=== PATIENT | male | born 1990 | race Caucasian/White ===

== ENCOUNTER 2017-04-01 22:11 | Observation (INO) | payer BC, OTHER ==
[~2017-04-01] VITALS: Ht 200.7 cm; Wt 99.2 kg
[2017-04-01] MEDS ORDERED: MoRPHine SULFATE 4 MG/ML 1 ML CARP\\VIAL IV STA ×3 (22:32→23:47)
[2017-04-01] MEDS ORDERED: ONDANSETRON INJ 2 MG/ML 2 ML VIAL IV STA (22:32)
[2017-04-01] MEDS ORDERED: SODIUM CHLORIDE 0.9% 1000ML 1,000 ML IV STA ×2 (22:32)
[2017-04-01] MEDS ORDERED: OPTIRAY 320 IV PRN (22:45)
[2017-04-01 23:08] LABS: BASO % 0.1 %; BASO ABS # 0.01 K/uL (0-0.2); COMPLETE YES; EOS % 0.6 %; HEMATOCRIT 45.5 % (42-52); IG% 0.1 %; MEAN CELL VOLUME 89.9 fL (80-100); MEAN CORPUSCULAR HEMOGLOBIN 31.8 pg (25-34); MEAN CORPUSCULAR HGB CONC 35.4 g/dl (32-36); MEAN PLATELET VOLUME 9.1 fL (7.4-10.4); NEUT % 67.2 %; PLATELET COUNT 200 K/uL (130-400); RED BLOOD COUNT 5.06 M/uL (4.7-6.1); URINE APPEARANCE CLEAR (CLEAR); URINE BILIRUBIN NEG (NEG); URINE COLOR YELLOW; URINE NITRITE NEG (NEG); URINE PH 6.5 (4.5-7.5); UROBILINOGEN NEG (NEG); WHITE BLOOD COUNT 9.55 K/uL (4.8-10.8); ZZUR CULT IF INDIC CLEAN CATCH NO
[2017-04-01 23:25] LABS: MANUAL MICROSCOPIC REQUIRED? NO; REVIEW REQ? NO
[2017-04-01 23:31] LABS: BUN/CREATININE RATIO 17.3 (10-20); CALCIUM 9.5 mg/dl (8.5-10.1); CREATININE 1.2 mg/dl (0.60-1.40); POTASSIUM 3.8 mmol/L (3.5-5.1)
[2017-04-02] VITALS (10 sets, daily range): BP systolic 105–153; BP diastolic 51–82; PULSE 57–64; TEMP 36.8–37.4; O2SAT 94–99; Ht 200.7 cm; Wt 99.2 kg
[2017-04-02] MEDS ORDERED: PERCOCET HOME PACK PO SCH
[2017-04-02] MEDS ORDERED: ONDANSETRON INJ 2 MG/ML 2 ML VIAL IV STA ×2 (00:34→00:45)
[2017-04-02] MEDS ORDERED: CEFOXITIN 2000MG/60 ML D5W IV STA (00:45)
[2017-04-02] MEDS ORDERED: MoRPHine SULFATE 4 MG/ML 1 ML CARP\\VIAL IV PRN (02:30)
[2017-04-02] MEDS ORDERED: ONDANSETRON INJ 2 MG/ML 2 ML VIAL IV PRN ×2 (02:30→11:15)
[2017-04-02] MEDS ORDERED: DiphenhydrAMINE HCL 50 MG/ML VIAL IV PRN (02:30)
[2017-04-02] MEDS ORDERED: IV FLUIDS COMPLETED PRN (02:30)
[2017-04-02] MEDS ORDERED: MoRPHine SULFATE 2 MG/ML CARP IV PRN (02:30)
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
--- NOTE | 2017-04-02 02:35 | Discharge Instructions ---
Discharge Instructions Date of Service Apr 02, 2017. Admission Reason for Admission: Sharp Pain In Right Abdomen Discharge Discharge Diagnosis / Problem: appendicitis Discharge Goals Goal(s): Decrease discomfort Activity Recommendations Activity Limitations: per Instructions/Follow-up section . Instructions / Follow-Up Instructions / Follow-Up Appendectomy Post-Operative Instructions Please read over this material carefully. While instructions may vary from patient to patient, the material should provide you with a general idea of things to do to help you get well after your surgery. Activity You will likely feel tired for at least 1 week after your surgery. Take your pain medicine as needed in order to stay active, but rest as needed for recovery. Take short walks 2-3 times a day. This will help reduce the risk of blood clots following surgery. You may use the stairs as needed as long as you are not dizzy or weak. Make sure someone is around the first few times you use the stairs or exercise. Driving Do not drive until you have been seen for your first post-operative clinic office visit. Unless told otherwise, you may drive after your first visit and when you can react safely in an emergency situation. You must not be taking pain medicines stronger than regular Tylenol (acetaminophen) at the time you are driving, nor should you have a great deal of pain, as this will affect your ability to react quickly. Also: do not take the narcotic pain medications such as Tylenol #3 ( acetaminophen with codeine) or Percocet (oxycodone) or lortab (hydrocodone) and plain Tylenol (acetaminophen) at the same time as Tylenol is in both of them. You should limit the total Tylenol dosage to 3,000 mg per 24 hours. If you are trying to take yourself off of the narcotic pain medication by switching to Tylenol, allow 6 hours between doses. Lifting/Coughing Practice 10 deep breaths every hour and 2 coughs every hour, (for at least 12 hours a day), for the first week after surgery. This will decrease your risk of lung problems or pneumonia. Do not lift heavy objects (more than 20-25 pounds) for the first 4 weeks. Also avoid pushing, pulling or abdominal pressure for these first 4 weeks. When coughing, be sure to place a pillow over the incision and gently press inward to reduce the pressure (from coughing) on your incision. Medications Use your pain medicine as prescribed. Narcotic pain medications should be used sparingly, Pain medications may cause nausea on an empty stomach so we recommend you take with it food. The prescription pain medication also universally causes constipation. You may switch to plain Tylenol and/or ibuprofen if you have no medical reasons why you cannot use these medications. If you are feeling constipated and have not had a bowel movement by the 2nd day after surgery, you may take 1 ounce of Milk of Magnesia in the morning, until you are more regular. Incisions If your incisions have been closed with and a special skin glue over the incision-the skin glue will dissolve on its own. Do not try to remove it from your skin. If you have mayco in place, please call the office to have them removed by about 7-10 days after surgery with his nurse. You may shower the day after surgery and allow clean, soapy water to run over your incision but do not soak your incisions in water (no hot tub, bathtub or swimming pools) for the first week after surgery. Do not put any ointment or creams over the incisions for the first 2 weeks after surgery or while the incision is open, draining or scabbed. Diet You should only eat frequent small amounts of food for at least a few days after your surgery. It is more important to hydrate yourself than to eat much. When you are able to return to normal food, you may wish to avoid fatty or heavy foods for the first few days. Some of these foods may cause diarrhea or nausea following surgery. You may also find it helpful to consume more fruits and vegetables after surgery to help to avoid constipation. Follow Up You should follow up in the clinic about 1 week to ten days after your surgery. You may be seen sooner if decided by the surgical team. Please call the office at to schedule your follow up visits. PRECAUTIONS When Should I call the Physician? Diarrhea: Occasional loose bowel movements are not uncommon. However, constant watery diarrhea, especially with fever, can mean there is an infection of the bowels. Fever with or without cough: This could be a sign of lung, wound or stomach infection. Elevated heart rate: If your heart rate is more than 100 beats per minute, this could be a sign of infection. Sudden shortness of breath and/or chest pain: This could be related to a heart problem, such as a heart attack, or could be related to a blood clot to the lung (pulmonary embolus) or a lung infection. Leg swelling and pain: Blood clot formation in the leg, particularly if it is on one side, could cause swelling with pain in the calf. Passing out: This could be a sign of low blood pressure, which could be caused by blood loss, low blood sugar or other causes. Wound drainage: Gold colored drainage is normal. If you develop drainage from your wound that is thick, greenish-brown color, has a foul odor, redness, and/or tenderness, it may be a sign that your wound is infected. Call your doctor. For urgent matters, you may call and ask to have the doctor security professionals paged. Please remove call block from your phone and refrain from using your phone so that the physician may return your call promptly. Current Hospital Diet Discharge Diet Recommended Diet: Regular Diet Procedures Procedures Performed: laparoscopic appendectomy Pending Studies Studies pending at discharge: yes List of pending studies: pathology for appendix Medical Emergencies . Who to Call and When: Medical Emergencies: If at any time you feel your situation is an emergency, please call 911 immediately. . Non-Emergent Contact Non-Emergency issues call your: Surgeon Past History Medical & Surgical History: (1) Appendicitis, acute . "Provider Documentation" section prepared by Jose Baldwin. . VTE Core Measure Inpt VTE Proph given/why not?: SCD's [place] Drug Monitoring Program Search Results: patient reviewed within database, no issues identified
[2017-04-02] MEDS: MoRPHine SULFATE 4 MG/ML 1 ML CARP\\VIAL IV PRN ×4 (02:40→07:56)
[2017-04-02] MEDS: LACTATED RINGER'S 1000ML 1,000 ML IV SCH ×3 (04:20→14:00)
[2017-04-02] MEDS: CEFOXITIN IV 2,000 MG in DEXTROSE 5% 50ML 50 ML IV SCH ×3 (06:17→08:55)
--- NOTE | 2017-04-02 06:35 | EMERGENCY ROOM VISIT NOTE ---
History First contact with patient: 22:17 Chief Complaint: ABDOMINAL PAIN Stated Complaint: APPENDICITIS, ACUTE Nursing Triage Summary: patient c/o intermittent RLQ abdominal pain described as stabbing sensation since this morning. patient also states he feels nauseated. History of Present Illness The patient is a 26 year old male who presents to the Emergency Room with complaints of right lower quadrant pain for the past several hours currently 8 out of 10. Nothing makes it better or worse. He is nauseated. It does not radiate. Patient denies chest pain, dyspnea, fever, chills, vomiting, diarrhea , back pain, testicular pain, penile pain, urinary symptoms. No injury to the area. Review of Systems See HPI for pertinent positives & negatives. A total of 10 systems reviewed and were otherwise negative. Past Medical/Surgical History Medical Problems: (1) Appendicitis, acute (2) Nasal bone fracture (3) No Known Active Medical Problems Surgical Problems: (1) [place] teeth extracted Social History Smoking Status: Never Smoker Marital Status: single Occupation Status: employed Current/Historical Medications No Active Prescriptions or Reported Meds Physical Exam Vital Signs Date Time Temp Pulse Resp B/P (MAP) Pulse Ox O2 Delivery O2 Flow Rate FiO2 04/02/17 00:30 72 16 132/91 96 Room Air 04/01/17 23:29 62 20 127/87 100 Room Air 04/01/17 22:50 98 Room Air 04/01/17 22:15 36.7 75 16 151/97 97 Room Air Pain Rating (0-10): 4.0 Physical Exam VITALS: Vitals are noted on the nurse's note and reviewed by myself. Vital signs stable. GENERAL: Pleasant male, in no acute distress, nondiaphoretic, well-developed well-nourished. SKIN: The skin was without rashes, erythema, edema, or bruising. There is no tenting of the skin. Capillary reflex less than 2 seconds. HEAD: Normocephalic atraumatic. EARS: External auditory canals clear, tympanic membranes pearly alvarado without erythema or effusion bilaterally. EYES: Pupils equal round and reactive to light and accommodation. Conjunctivae without injection, sclerae without icterus. Extraocular movements intact. NOSE: Patent, turbinates without inflammation or discharge. MOUTH: Mucous membranes moist. Pharynx without erythema or exudate. Uvula midline. Airway patent. Tongue does not deviate. NECK: Supple without nuchal rigidity. No lymphadenopathy. No thyromegaly. Cervical spine is nontender. No JVD. HEART: Regular rate and rhythm without murmurs gallops or rubs. LUNGS: Clear to auscultation bilaterally without wheezes, rales or rhonchi. No dullness to percussion. No retractions or accessory muscle use. ABDOMEN: Positive bowel sounds x 4. Normal tympanic percussion. Soft, tender to palpation right lower quadrant, no CVA tenderness, without masses or organomegaly. [place] sign negative. No guarding or rebound tenderness. MUSCULOSKELETAL: No muscle atrophy, erythema, or edema noted. NEURO: Patient was alert and oriented to person place and time. Normal sensation to light and sharp touch. No focal neurological deficits. Medical Decision & Procedures Laboratory Results 04/01/17 22:40 Red Blood Count 5.06, Mean Corpuscular Volume 89.9, Mean Corpuscular Hemoglobin 31.8, Mean Corpuscular Hemoglobin Concent 35.4, Mean Platelet Volume 9.1, Neutrophils (%) (Auto) 67.2, Lymphocytes (%) (Auto) 23.0, Monocytes (%) (Auto) 9.0, Eosinophils (%) (Auto) 0.6, Basophils (%) (Auto) 0.1, Neutrophils # (Auto) 6.41, Lymphocytes # (Auto) 2.20, Monocytes # (Auto) 0.86, Eosinophils # (Auto) 0.06, Basophils # (Auto) 0.01 04/01/17 22:40 Test 04/01/17 22:40 White Blood Count 9.55 K/uL (4.8-10.8) Red Blood Count 5.06 M/uL (4.7-6.1) Hemoglobin 16.1 g/dL (14.0-18.0) Hematocrit 45.5 % (42-52) Mean Corpuscular Volume 89.9 fL (80-100) Mean Corpuscular Hemoglobin 31.8 pg (25-34) Mean Corpuscular Hemoglobin Concent 35.4 g/dl (32-36) Platelet Count 200 K/uL (130-400) Mean Platelet Volume 9.1 fL (7.4-10.4) Neutrophils (%) (Auto) 67.2 % Lymphocytes (%) (Auto) 23.0 % Monocytes (%) (Auto) 9.0 % Eosinophils (%) (Auto) 0.6 % Basophils (%) (Auto) 0.1 % Neutrophils # (Auto) 6.41 K/uL (1.4-6.5) Lymphocytes # (Auto) 2.20 K/uL (1.2-3.4) Monocytes # (Auto) 0.86 K/uL (0.11-0.59) Eosinophils # (Auto) 0.06 K/uL (0-0.5) Basophils # (Auto) 0.01 K/uL (0-0.2) RDW Standard Deviation 40.0 fL (36.4-46.3) RDW Coefficient of Variation 12.3 % (11.5-14.5) Immature Granulocyte % (Auto) 0.1 % Immature Granulocyte # (Auto) 0.01 K/uL (0.00-0.02) Urine Color YELLOW Urine Appearance CLEAR (CLEAR) Urine pH 6.5 (4.5-7.5) Urine Specific [place] 1.030 (1.000-1.030) Urine Protein NEG (NEG) Urine Glucose (UA) NEG (NEG) Urine Ketones TRACE (NEG) Urine Occult Blood NEG (NEG) Urine Nitrite NEG (NEG) Urine Bilirubin NEG (NEG) Urine Urobilinogen NEG (NEG) Urine Leukocyte Esterase NEG (NEG) Anion Gap 6.0 mmol/L (3-11) Est Creatinine Clear Calc Drug Dose 62.0 ml/min Estimated GFR () 97.5 Estimated GFR (Non- 84.1 BUN/Creatinine Ratio 17.3 (10-20) Calcium Level 9.5 mg/dl (8.5-10.1) Total Bilirubin 0.4 mg/dl (0.2-1) Direct Bilirubin 0.1 mg/dl (0-0.2) Aspartate Amino Transf (AST/SGOT) 29 U/L (15-37) Alanine Aminotransferase (ALT/SGPT) 25 U/L (12-78) Alkaline Phosphatase 60 U/L (45-117) Total Protein 8.3 gm/dl (6.4-8.2) Albumin 4.6 gm/dl (3.4-5.0) Lipase 113 U/L (73-393) Medications Administered Medications (Trade) Dose Ordered Sig/Cary Route Start Time Stop Time Status Last Admin Dose Admin Morphine Sulfate (MoRPHine SULFATE INJ) 4 mg NOW STAT IV 04/01/17 22:32 04/01/17 22:34 DC 04/01/17 22:52 4 MG Ondansetron HCl (Zofran Inj) 4 mg NOW STAT IV 04/01/17 22:32 04/01/17 22:34 DC 04/01/17 22:52 4 MG Sodium Chloride 1,000 ml @ 999 mls/hr Q1H1M STAT IV 04/01/17 22:32 04/01/17 23:32 DC 04/01/17 22:51 999 MLS/HR Sodium Chloride 1,000 ml @ 125 mls/hr Q8H STAT IV 04/01/17 22:32 04/02/17 04:18 DC 04/01/17 22:52 125 MLS/HR Morphine Sulfate (MoRPHine SULFATE INJ) 4 mg NOW STAT IV 04/01/17 23:23 04/01/17 23:24 DC 04/01/17 23:26 4 MG Morphine Sulfate (MoRPHine SULFATE INJ) 4 mg NOW STAT IV 04/01/17 23:47 04/01/17 23:48 DC 04/02/17 00:29 4 MG Ondansetron HCl (Zofran Inj) 4 mg NOW STAT IV 04/02/17 00:34 04/02/17 00:35 DC 04/02/17 00:34 4 MG Cefoxitin Sodium (Mefoxin 2000mg/ 60 ml D5W) 2,000 mg NOW STAT IV 04/02/17 00:45 04/02/17 00:46 DC 04/02/17 01:05 2,000 MG Lactated Ringer's 1,000 ml @ 125 mls/hr Q8H IV 04/02/17 02:16 05/02/17 02:15 04/02/17 04:20 125 MLS/HR ED Course Prior records/ancillary studies reviewed. Triage Nursing notes reviewed. Additional history obtained from family. The patient's history was concerning for abdominal pain. Differential diagnosis: Etiologies such as appendicitis, diverticulitis, PUD, biliary pathology, UTI, pancreatitis, obstruction, mesenteric ischemia, aortic pathology, infections, inflammatory bowel disease, renal colic, as well as others were entertained. Physical examination findings: As above. ER treatment provided: Morphine, Zofran, Mefoxin On reassessment the patient felt better. Diagnostics interpreted by me: The labs revealed stable H&H. Negative urine Imaging studies: CT concerning for appendicitis per radiology Consultation: A consultation was placed with the surgeon, Dr. Baldwin and he will come in and evaluate the patient. The case was discussed and diagnostics were reviewed. The patient was evaluated in the ER for further treatment. Exam and history seem consistent with acute appendicitis. Patient started on antibiotics. He was placed nothing by mouth. Surgery will come in and evaluate the patient. By the evaluation outlined above emergent etiologies such as diverticulitis, PUD, biliary pathology, UTI, pancreatitis, obstruction, mesenteric ischemia, aortic pathology, inflammatory bowel disease, renal colic, as well as others were deemed relatively unlikely. The pt informed about the findings as listed above. All questions were answered and pleased with the treatment. Case reviewed with my attending Medical Decision As above Medication Reconcilliation Current Medication List: was personally reviewed by me Blood Pressure Screening Patient's blood pressure: Normal blood pressure Impression Primary Impression: Appendicitis, acute Departure Information Dispostion Being Evaluated By Surgeon Condition GOOD Prescriptions No Active Prescriptions or Reported Meds Referrals No Doctor, Assigned (PCP) Forms HOME CARE DOCUMENTATION FORM, IMPORTANT VISIT INFORMATION Patient Instructions My [facility] Problem Qualifiers Primary Impression: Appendicitis, acute Acute appendicitis type: with localized peritonitis Qualified Codes: K35.3 - Acute appendicitis with localized peritonitis
--- NOTE | 2017-04-02 07:30 | DIAGNOSTIC IMAGING REPORT ---
CT ABD/PELVIS IV CONTRAST ONLY CLINICAL HISTORY: rlq pain COMPARISON STUDY: None. TECHNIQUE: Following the IV administration of 110 mL of Optiray-320, CT scan of the abdomen and pelvis was performed from the lung bases to the proximal femurs. Images are reviewed in the axial, sagittal, and coronal planes. IV contrast was administered without complication. A dose lowering technique was utilized adhering to the principles of ALARA. CT DOSE: 728.13 mGycm FINDINGS: Lower chest: There are minimal left basilar atelectatic changes present. Liver: There is minor periportal edema, likely secondary to aggressive hydration Gallbladder: Unremarkable. Spleen: Normal in size and attenuation. Pancreas: Unremarkable. Adrenal glands: Unremarkable. Kidneys: There is symmetric renal cortical enhancement. The kidneys are normal in size without hydronephrosis. Bowel: There are no transition zones indicate bowel obstruction. There is no evidence of acute diverticulitis. Evaluation the bowel is difficult given the lack of orally administered contrast and the posterior intra-abdominal fat. There is a fluid-filled tubular structure within the right lower quadrant containing 2 calcifications. This likely represents a dilated appendix containing two appendicoliths. There is mild infiltration/fluid within the surrounding fat. The findings are indicative of acute appendicitis. Peritoneum: There is trace free pelvic fluid. No free air is visualized Vasculature: The abdominal aorta is normal in course and caliber. Adenopathy: None. Pelvic viscera: The bladder, and pelvic viscera are unremarkable. Skeletal structures: There is a mixed lytic and sclerotic 6 cm lesion involving the right iliac bone. This has a relatively narrow zone of transition, and appears radiographically nonaggressive. IMPRESSION: 1. Dilated fluid-filled appendix containing two appendicoliths. There is surrounding fluid/inflammatory change. The findings are indicative of acute appendicitis and surgical consultation is recommended. 2. 6 cm mixed lytic and sclerotic lesion involving the right iliac bone. This has a nonaggressive appearance Electronically signed by: Damian Ball M.D. 04/02/2017 7:29 AM Dictated Date/Time: 04/02/2017 7:24 AM
[2017-04-02] MEDS ORDERED: BUPIVACAINE 0.5 % 5 MG/1 ML MPF 30ML VIAL ONE (08:41)
[2017-04-02] MEDS ORDERED: MIDAZOLAM HCL 1 MG/ML 2ML VIAL ONE (09:05)
[2017-04-02] MEDS ORDERED: FENTANYL CITRATE INJ 50 MCG/1 ML 2 ML VIAL ONE ×2 (09:05)
[2017-04-02] MEDS ORDERED: LIDOCAINE HCL 2% 2 ML VIAL (20MG/ML) ONE (09:05)
[2017-04-02] MEDS ORDERED: NEOSTIGMINE METHYLSULFATE 5 MG/5 ML SYR ONE (09:05)
[2017-04-02] MEDS ORDERED: PROPOFOL IV EMULSION 10 MG/ML 20 ML VIAL IV ONE (09:05)
[2017-04-02] MEDS ORDERED: DEXAMETHASONE SOD INJ 4 MG/ML VIAL ONE (09:05)
[2017-04-02] MEDS ORDERED: ROCURONIUM BROMIDE 10 MG/ML 5 ML VIAL IV ONE ×2 (09:05→10:03)
[2017-04-02] MEDS ORDERED: GLYCOPYRROLATE INJ 0.2 MG/ML VIAL ONE (09:05)
[2017-04-02] MEDS ORDERED: ONDANSETRON INJ 2 MG/ML 2 ML VIAL ONE (09:05)
[2017-04-02] MEDS ORDERED: HYDROmorphone INJ 2 MG/ML SYR/VIAL ONE (09:37)
[2017-04-02] MEDS ORDERED: PHENYLEPHRINE 100MCG/ML 5ML SYR ONE (10:03)
[2017-04-02] MEDS ORDERED: LARYING-O-JET KIT (LTA) ONE ×2 (10:04)
--- NOTE | 2017-04-02 10:45 | [facility] Post Operative Brief Note ---
Immediate Operative Summary Operative Date Apr 02, 2017. Pre-Operative Diagnosis appendicitis Post-Operative Diagnosis acute, non perforated, suppurative appendicitis Procedure(s) Performed Laparoscopic Appendectomy Surgeon Dr. Jose Baldwin Fisher Weir Surgeon(s) None Estimated Blood Loss 2ml Findings acute, suppurative, non perforated appendicitis. Partially retrocecal, white line of [place] mobilized. Good hemostasis. Specimens Permanent: A. appendix Drains None Anesthesia GETA Complication(s) None Disposition Recovery Room / PACU
--- NOTE | 2017-04-02 10:50 | [facility] Operative Report ---
Operative Report Operative Date Apr 02, 2017. Pre-Operative Diagnosis appendicitis Post-Operative Diagnosis acute, suppurative, non perforated appendicitis Procedure(s) Performed laparoscopic appendectomy Surgeon Dr. Jose Baldwin Chief Librarian Circulation Department Surgeon(s) None Estimated Blood Loss 2ml Findings acute, suppurative, non perforated appendicitis. Partially retrocecal, white line of Toldt mobilized. Good hemostasis. Specimens Permanent: A. appendix Drains None Anesthesia GETA Complication(s) None Disposition Recovery Room / PACU Indications 26 year old otherwise healthy male with non perforated appendicitis, plan for laparoscopic appendectomy. The risks of the procedure were discussed, all questions were answered, and the patient agreed to proceed with surgery as planned. Description of Procedure The patient was properly identified, consented, and taken to the operating room where he was placed in the supine position. General endotracheal anesthesia was induced. SCDs and a safety belt were placed. Preoperative antibiotics were administered. The patient's abdomen was prepped and draped in the standard sterile fashion. Surgical timeout was performed and all parties were in agreement that this was the correct patient and procedure to be performed and we continued as planned. A curvilinear infraumbilical incision was made with electrocautery and deepened down to the fascia with blunt dissection. The base of the umbilicus was grasped with a Tee and elevated towards the ceiling. An incision was made in the midline fascia with a knife and entry into the peritoneum was confirmed. Stay suture of 0 Vicryl was placed and a Patel trocar was inserted. The abdomen was insufflated with carbon dioxide which the patient tolerated without incident. The laparoscope was inserted and no damage from initial trocar placement was noted, no gross abnormalities were noted within the 4 quadrants the abdomen. 5 mm ports were then placed in the left lower quadrant with care not to damage the epigastric vessels, and in the suprapubic midline with care not to damage the bladder. The patient was placed in Trendelenburg position and rotated towards the left. The small bowel was swept away from the right lower quadrant. The cecum was grasped with an atraumatic grasper exposing the appendix. The appendix was mildly inflamed and there was no evidence of perforation. There was a small amount of turbid fluid in the pelvis. The appendix was partially retrocecal and the White Line of Toldt was mobilized with sharp and blunt dissection. A window was created between the base of the appendix and the mesoappendix. A rodríguez loaded 30 mm endoscopic stapler was then used to divide the appendix at its base. The mesoappendix was quite broad, so sequential firing of rodríguez loaded endoscopic stapler was then used to divide the mesoappendix. Hemostasis was good. The appendix was placed in an Endo Catch bag and removed through the umbilical port site. The right lower quadrant and pelvis was irrigated and hemostasis was found to be good. 5 mm trochars were removed under direct visualization and the abdomen was allowed to collapse. The umbilical port site fascia was closed with 0 Vicryl suture. The wound was irrigated, and the skin of all ports was closed with 4-0 Monocryl subcuticular sutures. Dermabond was placed over the wounds. The patient was extubated in the operating room and taken to the PACU where he recovered without apparent incident. All sponge, instrument and needle counts were correct at the conclusion of the procedure. The patient tolerated the procedure well. I attest to the content of the Intraoperative Record and any orders documented therein. Any exceptions are noted below.
[2017-04-02] MEDS ORDERED: KETOROLAC TROMETHAMINE 30 MG/ML VIAL ONE (10:54)
[2017-04-02] MEDS ORDERED: OXYC-57 PO (10:56)
[2017-04-02] MEDS: KETOROLAC TROMETHAMINE 15 MG/ML VIAL IV SCH ×2 (11:00→18:07)
[2017-04-02] MEDS ORDERED: OXYCODONE/ACETAMINOPHEN 5-325 TAB PO PRN ×2 (11:00)
--- NOTE | 2017-04-02 11:03 | Anesthesiology Progress Note ---
Anesthesia Post Op Note Date & Time Apr 02, 2017 at 11:03 Vital Signs Pain Intensity: 0 Vital Signs Past 12 Hours Date Time Temp Pulse Resp B/P (MAP) Pulse Ox O2 Delivery O2 Flow Rate FiO2 04/02/17 10:49 36.6 103 20 120/63 100 Oxymask 10 04/02/17 08:00 99 Room Air 04/02/17 07:46 36.9 61 16 153/82 (105) 99 Room Air 04/02/17 03:25 Room Air 04/02/17 03:25 36.8 64 24 129/77 97 Room Air 04/02/17 02:28 67 20 140/80 98 Room Air 04/02/17 00:30 72 16 132/91 96 Room Air 04/01/17 23:29 62 20 127/87 100 Room Air Notes Mental Status: alert / awake / arousable, participated in evaluation Pt Amnestic to Procedure: Yes Nausea / Vomiting: adequately controlled Pain: adequately controlled Airway Patency, RR, SpO2: stable & adequate BP & HR: stable & adequate Hydration State: stable & adequate Anesthetic Complications: no major complications apparent
[2017-04-02] MEDS ORDERED: HYDROmorphone INJ 1 MG/ML SYR IV PRN (11:15)
[2017-04-02] MEDS ORDERED: EpHEDrine SULFATE INJ 50 MG/ML AMP IV PRN (11:15)
[2017-04-02] MEDS ORDERED: ATROPINE SULFATE 0.1 MG/ML 5ML SYR IV PRN (11:15)
[2017-04-02] MEDS ORDERED: FENTANYL CITRATE INJ 50 MCG/1 ML 2 ML VIAL IV PRN (11:15)
[2017-04-02] MEDS ORDERED: NURSING VERBAL MED ORDER ONE (20:45)
--- NOTE | 2017-04-06 02:15 | DISCHARGE SUMMARY ---
PRIMARY DISCHARGE DIAGNOSIS: Acute appendicitis. PROCEDURE PERFORMED: Laparoscopic appendectomy. HOSPITAL COURSE: The patient is a 26-year-old male who presented to the Emergency Department with approximately 24 hours of abdominal pain, beginning periumbilical and localizing to right lower quadrant. His white count was 9000. CT showed dilated fluid filled appendix with 2 appendicoliths and surrounding inflammation. He was taken to the operating room overnight for laparoscopic appendectomy. The procedure was well tolerated and he was transferred to the surgical floor for overnight observation. In the morning postoperative day 1, he was able to tolerate diet and oral analgesics. He was stable for discharge. DISCHARGE INSTRUCTIONS: Discharge home. Follow up with Dr. Ling in 2 weeks. DISCHARGE MEDICATIONS: Percocet 1-2 tablets every 4 hours as needed and ibuprofen 600 mg every 6 hours as needed.
== END 2017-04-02 20:00 | disposition home or self-care (01) ==
LOC: C.EDB 22:13 → C.MSN 04-02 02:22 → ENRESERV 04-02 02:40
PROVIDERS: ADMIT Surgery; ATTEND Surgery
DX: K35.80 Unspecified acute appendicitis (principal)